=== PATIENT | male | born 1965 | race Caucasian/White ===

== ENCOUNTER → 2017-09-15 | Outpatient (CLI) | payer BC ==
--- NOTE | 2017-09-15 11:08 | RADIOLOGY REPORT (SQ) ---
EXAM DESCRIPTION: CHEST PA/LATERAL COMPLETED DATE/TIME: 09/15/2017 10:18 am REASON FOR STUDY: COUGH COMPARISON: None. TECHNIQUE: Frontal and lateral radiographic views of the chest acquired. NUMBER OF VIEWS: Two view. LIMITATIONS: None. FINDINGS: LUNGS AND PLEURA: No opacities, masses or pneumothorax. No pleural effusion. MEDIASTINUM AND HILAR STRUCTURES: No masses or contour abnormalities. HEART AND VASCULAR STRUCTURES: Heart normal size. No evidence for failure. BONES: No acute findings. HARDWARE: None in the chest. OTHER: No other significant finding. IMPRESSION: NO SIGNIFICANT RADIOGRAPHIC FINDING IN THE CHEST. TECHNICAL DOCUMENTATION: JOB ID: [id number]- All Rights Reserved Reading location - IP/workstation name: [email or web address]
== END ==
LOC: OD 09:06
PROVIDERS: ATTEND Internal Medicine
DX: R05 Cough (principal)
CPT/HCPCS: 71046

== ENCOUNTER → 2017-10-08 | Outpatient (CLI) | payer BC ==
[~2017-10-08] MED LIST: ALBUTEROL SULFATE 0.083% NEB 2.5 MG/3 ML AMPUL NEB ONE
--- NOTE | 2017-10-15 14:01 | Pulmonary Function Test ---
Pulmonary Function Test Date of Procedure:: 10/15/17 INDICATION:: Dyspnea Referring Provider: Abigail Randall Food Quality Technician: Dolores Vasquez CHURNER, [employer] OFFICER - Report Spirometry: FVC 4.47 L 88% postbronchodilator 4.59 L 90% FEV1 2.68 L 65% postbronchodilator 3.62 L 88% FEV1/FVC % 60 postbronchodilator 79 predicted 80 FEF 25-75% 1.23 L 30% postbronchodilator 3.11 L 75% Lung Volume: Total lung capacity 6.90 L 95% Vital capacity 4.47 L 88% Inspiratory capacity 3.09 L FRC into 3.8 1 99% ERV 0.61 RV 2.43 102% RV/TLC % 35 predicted 35 Diffusion Capactity: DLCO 29.1 105% DLCO/VA 5.07 125% Impression: Mild obstructive ventilatory defect with good response to bronchodilator therapy. No restrictive ventilatory defect. No hyperinflation or air trapping. Normal diffusion capacity.
== END ==
LOC: RT 12:52
PROVIDERS: ATTEND Physician Assistant
DX: R94.2 Abnormal results of pulmonary function studies (principal); J45.909 Unspecified asthma, uncomplicated; I10 Essential (primary) hypertension; M19.90 Unspecified osteoarthritis, unspecified site; K21.9 Gastro-esophageal reflux disease without esophagitis
CPT/HCPCS: 94060; 94727; 94729